=== PATIENT | female | born 1985 | race Caucasian/White ===

== ENCOUNTER 2018-07-19 10:51 | Outpatient (CLI) | END 2018-07-19 12:40 | disposition home or self-care (01) ==

== ENCOUNTER 2018-07-22 10:09 | Outpatient (CLI) | END 2018-07-22 13:30 | disposition home or self-care (01) ==

== ENCOUNTER 2018-07-28 12:00 | Inpatient (IN) | END 2018-08-02 16:00 | disposition home or self-care (01) | DRG 766 ==